=== PATIENT | female | born 1990 | race Caucasian/White ===

== ENCOUNTER 2018-11-06 21:48 | Emergency (ER) | payer MEDICAID ==
[~2018-11-06] VITALS: Ht 162.6 cm; Wt 77.3 kg
[2018-11-06 22:03] VITALS: Ht 162.6 cm; Wt 77.3 kg
[2018-11-06 23:04] VITALS: BP 125/65
== END 2018-11-06 23:05 | disposition home or self-care (01) ==
LOC: D.ER 21:48
DX: S60.222A Contusion of left hand, initial encounter (principal); V86.96XA Unspecified occupant of dirt bike or motor/cross bike injured in nontraffic accident, initial encounter